=== PATIENT | female | born 1960 | race Caucasian/White ===

== ENCOUNTER 2018-01-01 04:28 | Inpatient (IN) | payer MEDICARE, BC ==
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
[2018-01-01 05:48] LABS: ABS Basophils 0 10^3/ul (0-0.2); ABS Eosinophils 0 10^3/ul (0-0.6); ABS Lymphocytes 1.5 10^3/ul (1.0-4.8); ABS Monocytes 0.7 10^3/ul (0-0.8); ABS Neutrophils 7.5 10^3/ul (1.5-7.7); ABS Nucleated RBC 0 10^3/ul; Eosinophil % 0.4 % (0-6); Hematocrit 41 % (35-47); Hemoglobin 14.2 g/dl (12.0-16.0); Lymphocyte % 15.1 % (25-47); Mean Corpuscular HGB Conc 35 g/dl (31-36); Mean Corpuscular Hemoglobin 32 pg (27-31); Mean Corpuscular Volume 93 fL (80-97); Nucleated Red Blood Cells % 0.1; Platelet Count 311 10^3/ul (150-450); Red Blood Count 4.41 10^6/ul (4.00-5.40); Red Cell Distribution Width 13 % (10.5-15); White Blood Count 9.8 10^3/ul (3.5-10.8)
[2018-01-01] MEDS ORDERED: Potassium Chlor TAB* 20 MEQ TAB.ER PO ONE (06:07)
[2018-01-01 06:08] LABS: Urine Appearance Cloudy; Urine Blood Negative (Negative); Urine Color Amber; Urine Ketones 2+ (Negative); Urine Protein 2+(100 mg/dL) (Negative); Urine Red Blood Cell 3+(>10/hpf) (Absent); Urine Specific Gravity 1.033 (1.010-1.030); Urine Urobilinogen Positive (Negative); Urine White Blood Cell 3+(>20/hpf) (Absent)
--- NOTE | 2018-01-01 09:04 | ED ---
Progress - Progress Note Progress Note: This pt was signed out by Dr. Scott at shift change, pending disposition, awaiting MHE. Pt had a mental health evaluation and his case was reviewed by Dr. Hoover, psychiatrist. Dr. Hoover will admit the pt involuntarily to [facility] psychiatric facility with a diagnosis of unspecified psychotic disorder NOS. Re-Evaluation - Re-Evaluation First Eval Re-Evaluation Time: 06:15 Change: Unchanged Comment: Medically cleared for MHE. Course/Dx - Diagnoses Provider Diagnoses: Psychotic disorder Discharge - Sign-Out/Discharge Documenting (check all that apply): Patient Departure - Admit to [facility] PSYCH, Receiving Sign-Out Receiving patient FROM: Luis Scott - Discharge Plan Condition: Stable Disposition: PSYCHIATRIC FACILITY-[facility] Referrals: No Primary Care Phys,NOPCP [Primary Care Provider] - - Attestation Statements Document Initiated by Scribe: Yes Documenting Scribe: Phoebe Mcnair Provider For Whom Scribe is Documenting (Include Credential): Anderson García MD Scribe Attestation: Phoebe Allen, scribed for Anderson García MD on 01/01/18 at 0913.
[2018-01-01] MEDS ORDERED: Al Hydrox/Mg Hydrox/Simet LIQ* 30 ML UDC PO PRN (09:05)
[2018-01-01] MEDS ORDERED: Acetaminophen TAB* 325 MG PO PRN (09:05)
[2018-01-01] MEDS ORDERED: Haloperidol TAB* 5 MG PO PRN (09:06)
[2018-01-01] MEDS ORDERED: Artificial Tears* 15 ML BTL BOTH EYES PRN (12:22)
[2018-01-01] MEDS ORDERED: LORazepam TAB(*) 1 MG PO PRN (12:36)
[2018-01-01] MEDS ORDERED: LORazepam TAB(*) 1 MG ONE (12:39)
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
[2018-01-01] MEDS: fluPHENAZine HCL TAB* 5 MG PO SCH (21:48)
[2018-01-01] MEDS: Ziprasidone * 20 MG CAP (generic Geodon) PO SCH ×2 (21:48)
[2018-01-01] MEDS: Benztropine TAB* 1 MG PO SCH (21:48)
[2018-01-02] MEDS: Ziprasidone * 20 MG CAP (generic Geodon) PO SCH ×3 (09:46→20:18)
[2018-01-02] MEDS: Benztropine TAB* 1 MG PO SCH ×2 (09:46→20:18)
[2018-01-02] MEDS: fluPHENAZine HCL TAB* 5 MG PO SCH (09:46)
--- NOTE | 2018-01-02 14:22 | PN ---
Subjective - Subjective Date of Service: 01/02/18 Service Type: 04231 Hosp care 15 min low complexity Subjective: Carolina met, initially, with Kojo Babb and me, but requested a 1/2 hour to wake up. When I returned, she was still in bed, but not as sleepy. She believes the Geodon she took last night is what is making her so tired. She reports that she took Geodon in the past, but she states she doesn't take any medication at home, although she used to. She will not say if she has ever taken any psychiatric medication in the past. She also will not reveal the location of her previous single stay in a psychiatric unit; further, she will not reveal if she has a PCP, although she says she has several "preferred doctors." She tells the story of her first hospitalization: she went to the hospital to have a 2-hour talk which she stated she was entitled to as part of her hospital' s public offerings. She states she was evaluated for "four minutes" and then committed involuntarily to the hospital for two weeks. At that time she took Geodon. She states she takes no other medications. She also is physically healthy, denying asthma, hypertension, and hypercholestrolemia specifically. She states she will refuse psychiatric medications as she doesn't need them and they have dangerous side effects. Objective - Appearance Appearance: Well Developed/Nourished Dysmorphic Features: No Hygiene: Mal-odorous Grooming: Disheveled - Behavior Exhibits Abnormal Movement: No - Attitude and Relatedness Attitude and Relatedness: Superficially Cooperative Eye Contact: Poor - Speech Quality: Unpressured Latencies: Short Quantity: Terse - Mood Patient's Decription of Mood: "Fine" - Affect Observed Affect: Constricted Affect Consistent with: Euthymia - Thought Process Patient's Thought Process: Circumstantial Thought Content: No Passive Wish, No Suicidal Planning, No Homicidal Ideation, No Paranoid Ideation - Sensorium Experiencing Hallucinations: No, Sensorium is Clear Type of Hallucinations: Visual: No, Auditory: No, Command: No - Level of Consciousness Level of Consciousness: Lethargic Orientation: Yes Intact, Yes Orientated to Time, Yes Orientated to Place, Yes Orientated to Person - Impulse Control Impulse Control: Impaired - Insight and Judgement Insight and Judgement: Impaired - Group Participation Particating in Group Activities: No - Medication Management Medication Management Adherence: Partial - Additional Observations Comments: Carolina has a clean face today, but her hair is sticking up around her head. She is logical in speech, but is very clearly measuring her words and filtering what she is saying. There is a sense that she is editing significantly, especially around the subjects of physical and mental health. Assessment - Assessment Merits Inpatient Hospitalization: For Immediate Safety, For Discharge Planning Clinical Impression: Carolina at this time is sleepy, but conversational and pleasant. She does not endorse any psychiatric problems and seems mystified by why she is here. Her previous psychiatric admission's purpose is also mysterious to her. There is a distinct lack of insight on the part of Carolina in this regard, but she seems to be aware that collateral from her family or previous hospital or doctors will prove "damaging" to her assertion of healthy mental status. Plan - Plan Treatment Plan: Name: CAROLINA CHRISTIANSON Birthdate: 1960 [id number] Continued Medication Management: Different Medication Medications: Current Medications Acetaminophen (Tylenol Tab*) 650 mg PO Q4H PRN PRN Reason: for pain; or Temp >101 F Al Hydrox/Mg Hydrox/Simethicone (Maalox Plus*) 30 ml PO Q4H PRN PRN Reason: INDIGESTION Benztropine Mesylate (Cogentin Tab*) 0.5 mg PO BID [facility] Last Admin: 01/02/18 09:46 Dose: Not Given Haloperidol (Haldol Tab*) 5 mg PO Q6H PRN PRN Reason: ANXIETY Lorazepam (Ativan Tab(*)) 2 mg PO Q6H PRN PRN Reason: catatonic behavior Polyvinyl Alcohol (Polyvinyl Alcohol 1.4% Opth*) 1 drop BOTH EYES Q1H PRN PRN Reason: dry eye/eye irritation Ziprasidone (Geodon (Generic) *) 40 mg PO BID [facility] Last Admin: 01/02/18 09:46 Dose: Not Given Ziprasidone (Geodon (Generic) *) 60 mg PO BEDTIME [facility] Last Admin: 01/01/18 21:48 Dose: 60 mg - Discharge Plan Discharge Plan: Outpatient Follow Up Additional Comments: Yesterday she was clearly psychotic, nearly catatonic. Today she appears clear. This could be because of all the sleep she has gotten and her regular eating of meals. Tomorrow we will reassess and have a better determination of length of stay.
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
[2018-01-03] MEDS: Ziprasidone * 20 MG CAP (generic Geodon) PO SCH (09:39)
[2018-01-03] MEDS: Benztropine TAB* 1 MG PO SCH ×2 (09:39→20:58)
--- NOTE | 2018-01-03 14:19 | PN ---
Subjective - Subjective Date of Service: 01/03/18 Service Type: 56299 Hosp care 15 min low complexity Subjective: Carolina declines to speak with me today. In observing her, she is red-faced and is walking around the milieu intensely. Her hair remains extremely disheveled and is standing up around her head. She is in blue paper scrubs. She asked for her shower to be cleaned because someone else had used it: she doesn't remember that she is the one who used it. There is collateral from her brother available that indicates that Carolina is good at "holding it together" but eventually unravels. Objective - Appearance Appearance: Well Developed/Nourished Dysmorphic Features: No Hygiene: Normal Grooming: Disheveled - Behavior Psychomotor Activities: Normal Exhibits Abnormal Movement: No - Attitude and Relatedness Attitude and Relatedness: Minimally Cooperative Eye Contact: Poor - Speech Quality: Unpressured Latencies: Short Quantity: Terse - Mood Patient's Decription of Mood: "Fine" - Affect Observed Affect: Constricted Affect Consistent with: Dysphoria - Thought Process Patient's Thought Process: Coherent Thought Content: Yes Homicidal Ideation, No Passive Wish, No Suicidal Planning - Sensorium Experiencing Hallucinations: No, Sensorium is Clear Type of Hallucinations: Visual: No, Command: No - Level of Consciousness Level of Consciousness: Alert Orientation: Yes Intact, Yes Orientated to Time, Yes Orientated to Place, Yes Orientated to Person - Impulse Control Impulse Control: Tenuous - Insight and Judgement Insight and Judgement: Poor - Group Participation Particating in Group Activities: No - Medication Management Medication Management Adherence: No - Additional Observations Comments: She is logical in speech, but is very clearly measuring her words and filtering what she is saying. There is a sense that she is editing significantly. She does not look collected and calm. She appears agitated physically while maintaining silence for the most part. Assessment - Assessment Merits Inpatient Hospitalization: For Immediate Safety, For Discharge Planning, Pending Safe DC Plan Clinical Impression: Carolina does not endorse any psychiatric problems and seems mystified by why she is here. Her previous psychiatric admission's purpose is also mysterious to her (she admits to only one although her brother indicates there have been 4-5 this year alone). There is a distinct lack of insight on the part of Carolina in this regard, but she seems to be aware that collateral from her family or previous hospital or doctors will prove "damaging" to her assertion of healthy mental status. Her stress level here is relatively low as there is little expected of her and she is eating and drinking adequately. Continued monitoring may prove useful in that her behavior may start to deteriorate. Plan - Plan Treatment Plan: Name: CAROLINA CHRISTIANSON Birthdate: 1960 [id number] Continued Medication Management: Start Medication Medications: Current Medications Acetaminophen (Tylenol Tab*) 650 mg PO Q4H PRN PRN Reason: for pain; or Temp >101 F Al Hydrox/Mg Hydrox/Simethicone (Maalox Plus*) 30 ml PO Q4H PRN PRN Reason: INDIGESTION Benztropine Mesylate (Cogentin Tab*) 0.5 mg PO BID [facility] Last Admin: 01/03/18 09:39 Dose: Not Given Haloperidol (Haldol Tab*) 5 mg PO Q6H PRN PRN Reason: ANXIETY Lorazepam (Ativan Tab(*)) 2 mg PO Q6H PRN PRN Reason: catatonic behavior Polyvinyl Alcohol (Polyvinyl Alcohol 1.4% Opth*) 1 drop BOTH EYES Q1H PRN PRN Reason: dry eye/eye irritation Ziprasidone (Geodon (Generic) *) 40 mg PO BID [facility] Last Admin: 01/03/18 09:39 Dose: Not Given Ziprasidone (Geodon (Generic) *) 60 mg PO BEDTIME [facility] Last Admin: 01/02/18 20:18 Dose: Not Given - Discharge Plan Discharge Plan: Inpatient Hospitalization Additional Comments: Yesterday she was clearly psychotic, nearly catatonic. Today she appears clear. This could be because of all the sleep she has gotten and her regular eating of meals. Continued monitoring will be important. I will also change the medication to Risperdal m tabs to prepare her for an injectable if necessary or possible. She has been rejecting all medications since the first night.
[2018-01-03] MEDS ORDERED: risperiDONE-M * 1 MG TAB.ORADIS PO PRN (14:30)
[2018-01-03] MEDS: risperiDONE-M * 1 MG TAB.ORADIS PO SCH (20:58)
[2018-01-04] MEDS: Benztropine TAB* 1 MG PO SCH ×2 (09:26→22:01)
[2018-01-04] MEDS: risperiDONE-M * 1 MG TAB.ORADIS PO SCH ×2 (09:26→22:01)
[2018-01-05] MEDS: risperiDONE-M * 1 MG TAB.ORADIS PO SCH ×2 (10:40→20:08)
[2018-01-05] MEDS: Benztropine TAB* 1 MG PO SCH ×2 (10:40→20:08)
--- NOTE | 2018-01-05 19:33 | PN ---
Subjective - Subjective Date of Service: 01/05/18 Service Type: [id number] Hosp care 15 min low complexity Subjective: Carolina came reluctanly to see this senior technical writer and reports that she doesn't have any menta illness. She just was stressed brigid by the roadside in a strange place. Very suspicious and guarded and denies that she has any mental health issues and need any meds. Objective - Appearance Appearance: Healthy Appearing Dysmorphic Features: No Hygiene: Mal-odorous Grooming: Disheveled - Behavior Psychomotor Activities: Normal Exhibits Abnormal Movement: No - Attitude and Relatedness Attitude and Relatedness: Superficially Cooperative Eye Contact: Fair - Speech Quality: Unpressured Latencies: Normal Quantity: Terse - Mood Patient's Decription of Mood: "Fine" - Affect Observed Affect: Depressed Affect Consistent with: Dysphoria - Thought Process Patient's Thought Process: Coherent, Circumstantial Thought Content: No Passive Wish, No Suicidal Planning, No Homicidal Ideation, No Paranoid Ideation - Sensorium Experiencing Hallucinations: No, Sensorium is Clear Type of Hallucinations: Visual: No, Auditory: No, Command: No - Level of Consciousness Level of Consciousness: Alert Orientation: Yes Intact, Yes Orientated to Time, Yes Orientated to Place, Yes Orientated to Person - Impulse Control Impulse Control: Tenuous - Insight and Judgement Insight and Judgement: Impaired - Group Participation Particating in Group Activities: No - Medication Management Medication Management Adherence: No Assessment - Assessment Merits Inpatient Hospitalization: For Immediate Safety, For Stabilization, Diagnosis Determination, To Initiate Treatment, For Ongoing Evaluation Clinical Impression: Carolina does not endorse any psychiatric problems and seems mystified by why she is here. Her previous psychiatric admission's purpose is also mysterious to her (she admits to only one although her brother indicates there have been 4-5 this year alone). There is a distinct lack of insight on the part of Carolina in this regard, but she seems to be aware that collateral from her family or previous hospital or doctors will prove "damaging" to her assertion of healthy mental status. Her stress level here is relatively low as there is little expected of her and she is eating and drinking adequately. Continued monitoring may prove useful in that her behavior may start to deteriorate. 01/05/18: No change from baseline. Needs time for diagnostic clarification and safety. Plan - Plan Treatment Plan: Name: CAROLINA CHRISTIANSON Birthdate: 1960 [id number] Medications: Current Medications Acetaminophen (Tylenol Tab*) 650 mg PO Q4H PRN PRN Reason: for pain; or Temp >101 F Al Hydrox/Mg Hydrox/Simethicone (Maalox Plus*) 30 ml PO Q4H PRN PRN Reason: INDIGESTION Benztropine Mesylate (Cogentin Tab*) 0.5 mg PO BID [facility] Last Admin: 01/05/18 10:40 Dose: Not Given Lorazepam (Ativan Tab(*)) 2 mg PO Q6H PRN PRN Reason: catatonic behavior Polyvinyl Alcohol (Polyvinyl Alcohol 1.4% Opth*) 1 drop BOTH EYES Q1H PRN PRN Reason: dry eye/eye irritation Risperidone (Risperdal-M Tab *) 1 mg PO BID [facility]; Protocol Last Admin: 01/05/18 10:40 Dose: Not Given Risperidone (Risperdal-M Tab *) 2 mg PO Q6H PRN; Protocol PRN Reason: AGITATION
[2018-01-06] MEDS: Benztropine TAB* 1 MG PO SCH ×2 (09:59→20:11)
[2018-01-06] MEDS: risperiDONE-M * 1 MG TAB.ORADIS PO SCH ×2 (09:59→20:11)
--- NOTE | 2018-01-06 13:41 | PN ---
Subjective - Subjective Date of Service: 01/06/18 Service Type: [id number] Hosp care 15 min low complexity Subjective: Carolina smiles throughout the conversation despite it not going her way. She believed she would be discharged today and that she would drive herself home. She will instead be discharged to a sibling's care and driven back to [place]. Carolina does not accept that she is mentally ill. She believes that her catatonic behavior is an expression of the trauma she experienced by being stuck by the side of the road. She does not accept the feedback that her behavior is not a known trauma response. She also requires that she consult with Kojo Babb LMSW, to confirm that what has been said is true, demonstrating some continuing paranoia in this direction. Objective - Appearance Appearance: Well Developed/Nourished Dysmorphic Features: No Hygiene: Dirty Grooming: Disheveled - Behavior Psychomotor Activities: Normal Exhibits Abnormal Movement: Yes - Attitude and Relatedness Attitude and Relatedness: Minimally Cooperative Eye Contact: Fair - Speech Quality: Unpressured Latencies: Normal Quantity: Terse - Mood Patient's Decription of Mood: "Fine" - Affect Observed Affect: Constricted Affect Consistent with: Euthymia - Thought Process Patient's Thought Process: Goal Directed Thought Content: Yes Paranoid Ideation, No Passive Wish, No Suicidal Planning, No Homicidal Ideation - Sensorium Experiencing Hallucinations: No, Sensorium is Clear Type of Hallucinations: Visual: No, Auditory: No, Command: No - Level of Consciousness Level of Consciousness: Alert Orientation: Yes Intact, Yes Orientated to Time, Yes Orientated to Place, Yes Orientated to Person - Impulse Control Impulse Control: Impaired - Insight and Judgement Insight and Judgement: Impaired - Group Participation Particating in Group Activities: No - Medication Management Medication Management Adherence: No - Additional Observations Comments: She is logical in speech, but is very clearly measuring her words and filtering what she is saying. There is a sense that she is editing significantly. She does not look collected and calm. She will not take any medications of any kind. Her hair is dirty and is styled bizarrely. She stays lying down in bed and stares brightly at the wall when she talks. Assessment - Assessment Merits Inpatient Hospitalization: For Immediate Safety, Pending Safe DC Plan Clinical Impression: Carolina does not endorse any psychiatric problems and seems mystified by why she is here. Her previous psychiatric admission's purpose is also mysterious to her (she admits to only one although her brother indicates there have been 4-5 this year alone). There is a distinct lack of insight on the part of Carolina in this regard, but she seems to be aware that collateral from her family or previous hospital or doctors will prove "damaging" to her assertion of healthy mental status. Her stress level here is relatively low as there is little expected of her and she is eating and drinking adequately. 01/05/18: No change from baseline. Needs time for diagnostic clarification and safety. 01/06/2018: Carolina has not changed. She believed she was leaving today, but was still wrapped in blankets on top of her covers when I went to see her. She is behaving oddly and does not trust some staff. Plan - Plan Treatment Plan: Name: CAROLINA CHRISTIANSON Birthdate: 1960 [id number] Medications: Current Medications Acetaminophen (Tylenol Tab*) 650 mg PO Q4H PRN PRN Reason: for pain; or Temp >101 F Al Hydrox/Mg Hydrox/Simethicone (Maalox Plus*) 30 ml PO Q4H PRN PRN Reason: INDIGESTION Benztropine Mesylate (Cogentin Tab*) 0.5 mg PO BID [facility] Last Admin: 01/06/18 09:59 Dose: Not Given Lorazepam (Ativan Tab(*)) 2 mg PO Q6H PRN PRN Reason: catatonic behavior Polyvinyl Alcohol (Polyvinyl Alcohol 1.4% Opth*) 1 drop BOTH EYES Q1H PRN PRN Reason: dry eye/eye irritation Risperidone (Risperdal-M Tab *) 1 mg PO BID [facility]; Protocol Last Admin: 01/06/18 09:59 Dose: Not Given Risperidone (Risperdal-M Tab *) 2 mg PO Q6H PRN; Protocol PRN Reason: AGITATION - Discharge Plan Discharge Plan: Outpatient Follow Up Additional Comments: Today she appears clear, although with a strange affect and mild paranoid thoughts. Continued monitoring will be important while she is here. I will also change the medication to Risperdal m tabs to prepare her for an injectable if necessary or possible. She has been rejecting all medications since the first night and has continued to do so, no matter what medication is offered. Her brother, with whom Kojo has been in contact, states he can organize a ride home for her by . That is the avenue we pursue to maintain her safety and ensure she returns home.
[2018-01-07] MEDS: Benztropine TAB* 1 MG PO SCH ×2 (10:51→19:54)
[2018-01-07] MEDS: risperiDONE-M * 1 MG TAB.ORADIS PO SCH ×2 (10:51→19:54)
--- NOTE | 2018-01-07 13:55 | PN ---
Subjective - Subjective Date of Service: 01/07/18 Service Type: [id number] Hosp care 15 min low complexity Subjective: Carolina is lying in bed. She says it's depressing to be here and not be leaving until . She is not interested in taking medication, but she is polite about it. She does not smell good, and this has been discussed with her, which she found offensive. Objective - Appearance Appearance: Well Developed/Nourished Dysmorphic Features: No Hygiene: Dirty Grooming: Disheveled - Behavior Psychomotor Activities: Normal Exhibits Abnormal Movement: No - Attitude and Relatedness Attitude and Relatedness: Superficially Cooperative Eye Contact: Fair - Speech Quality: Unpressured Latencies: Normal Quantity: Terse - Mood Patient's Decription of Mood: "Okay" - Affect Observed Affect: Constricted Affect Consistent with: Dysphoria - Thought Process Patient's Thought Process: Coherent Thought Content: Yes Paranoid Ideation, No Passive Wish, No Suicidal Planning, No Homicidal Ideation - Sensorium Experiencing Hallucinations: Yes Type of Hallucinations: Visual: No, Auditory: Yes - was observed talking to herself last night, Command: No - Level of Consciousness Level of Consciousness: Alert Orientation: Yes Intact, Yes Orientated to Time, Yes Orientated to Place, Yes Orientated to Person - Impulse Control Impulse Control: Tenuous - Insight and Judgement Insight and Judgement: Poor - Group Participation Particating in Group Activities: No - Medication Management Medication Management Adherence: No - Additional Observations Comments: She is logical in speech, but is very clearly measuring her words and filtering what she is saying. There is a sense that she is editing significantly. She will not take any medications of any kind. Her hair is dirty and is slicked back. She stays lying down in bed and looks at the wall when she talks. She is polite and pleasant, but she is not interested in having a conversation. Assessment - Assessment Merits Inpatient Hospitalization: For Immediate Safety Inpatient DSM-V Dx: F29 Clinical Impression: Carolina does not endorse any psychiatric problems and seems mystified by why she is here. Her previous psychiatric admission's purpose is also mysterious to her (she admits to only one although her brother indicates there have been 4-5 this year alone). There is a distinct lack of insight on the part of Carolina in this regard, but she seems to be aware that collateral from her family or previous hospital or doctors will prove "damaging" to her assertion of healthy mental status. Her stress level here is relatively low as there is little expected of her and she is eating and drinking adequately. 01/05/18: No change from baseline. Needs time for diagnostic clarification and safety. 01/06/2018: Carolina has not changed. She believed she was leaving today, but was still wrapped in blankets on top of her covers when I went to see her. She is behaving oddly and does not trust some staff. 01/07/18: She is very pleasant and agreeable to disagree about taking medications. She is unkempt and has oily hair. She was observed to be responding to internal stimuli last night. Plan - Plan Treatment Plan: Name: CAROLINA CHRISTIANSON Birthdate: 1960 [id number] Medications: Current Medications Acetaminophen (Tylenol Tab*) 650 mg PO Q4H PRN PRN Reason: for pain; or Temp >101 F Al Hydrox/Mg Hydrox/Simethicone (Maalox Plus*) 30 ml PO Q4H PRN PRN Reason: INDIGESTION Benztropine Mesylate (Cogentin Tab*) 0.5 mg PO BID [facility] Last Admin: 01/07/18 10:51 Dose: Not Given Polyvinyl Alcohol (Polyvinyl Alcohol 1.4% Opth*) 1 drop BOTH EYES Q1H PRN PRN Reason: dry eye/eye irritation Risperidone (Risperdal-M Tab *) 1 mg PO BID [facility]; Protocol Last Admin: 01/07/18 10:51 Dose: Not Given Risperidone (Risperdal-M Tab *) 2 mg PO Q6H PRN; Protocol PRN Reason: AGITATION - Discharge Plan Discharge Plan: Outpatient Follow Up Additional Comments: Today she appears clear, although with a strange affect and mild paranoid thoughts. Continued monitoring will be important while she is here. I will also change the medication to Risperdal m tabs to prepare her for an injectable if necessary or possible. She has been rejecting all medications since the first night and has continued to do so, no matter what medication is offered. Her brother, with whom Kojo has been in contact, states he can organize a ride home for her by . That is the avenue we pursue to maintain her safety and ensure she returns home. Kojo has been discussing her discharge plan with Carolina and her brother. Carolina is quite irritated with her brother due to his releasing information to Kojo.
[2018-01-08] MEDS: risperiDONE-M * 1 MG TAB.ORADIS PO SCH ×2 (09:51→21:35)
[2018-01-08] MEDS: Benztropine TAB* 1 MG PO SCH ×2 (09:51→21:35)
--- NOTE | 2018-01-08 16:08 | PN ---
Subjective - Subjective Date of Service: 01/08/18 Service Type: [id number] Hosp care 25 min moderate complexity Subjective: Kojo Babb and I met with Edison to discuss the decision to pursue treatment over objection. This was a very unpopular announcement with Edison. She restrained herself, but she was hostile and outraged. She called herself, "furious." She was unimpressed with collateral from her brother and was uninterested in sympathy. She did speak privately with Kojo for some time. Objective - Appearance Appearance: Obese Dysmorphic Features: No Hygiene: Mal-odorous Grooming: Disheveled - Behavior Psychomotor Activities: Normal Exhibits Abnormal Movement: No - Attitude and Relatedness Attitude and Relatedness: Irritable Eye Contact: Fair - Speech Quality: Pressured Latencies: Normal Quantity: Copious - Mood Patient's Decription of Mood: "Angry" - Affect Observed Affect: Tense Affect Consistent with: Dysphoria - Thought Process Patient's Thought Process: Coherent Thought Content: No Passive Wish, No Suicidal Planning, No Homicidal Ideation, No Paranoid Ideation - Sensorium Experiencing Hallucinations: No, Sensorium is Clear Type of Hallucinations: Visual: No, Auditory: Yes - Was reported two days ago to be responding to IS., Command: No - Level of Consciousness Level of Consciousness: Agitated Orientation: Yes Intact, Yes Orientated to Time, Yes Orientated to Place, Yes Orientated to Person - Impulse Control Impulse Control: Tenuous - Insight and Judgement Insight and Judgement: Impaired - Group Participation Particating in Group Activities: No - Medication Management Medication Management Adherence: No - Additional Observations Comments: She is logical in speech, but is very clearly measuring her words and filtering what she is saying. There is a sense that she is editing significantly. She will not take any medications of any kind. Her hair is dirty and is slicked back. Today she sat up and made eye contact, but was so angry that she could not tolerate my presence for long. Assessment - Assessment Merits Inpatient Hospitalization: For Immediate Safety, For Ongoing Evaluation Inpatient DSM-V Dx: F29 Clinical Impression: Edison does not endorse any psychiatric problems and seems mystified by why she is here. Her previous psychiatric admission's purpose is also mysterious to her (she admits to only one although her brother indicates there have been 4-5 this year alone). There is a distinct lack of insight on the part of Edison in this regard, but she seems to be aware that collateral from her family or previous hospital or doctors will prove "damaging" to her assertion of healthy mental status. Her stress level here is relatively low as there is little expected of her and she is eating and drinking adequately. 01/05/18: No change from baseline. Needs time for diagnostic clarification and safety. 01/06/2018: Edison has not changed. She believed she was leaving today, but was still wrapped in blankets on top of her covers when I went to see her. She is behaving oddly and does not trust some staff. 01/07/18: She is very pleasant and agreeable to disagree about taking medications. She is unkempt and has oily hair. She was observed to be responding to internal stimuli last night. 01/08/18: Edison was angry and upset about learning about the decision to pursue treatment over objection. Interestingly, she did not bargain about how to avoid having to have this decision be made, rather she targeted her anger to people in her life indicating a lack of insight into what her role in this situation is. Plan - Plan Treatment Plan: Name: EDISON CHRISTIANSON Birthdate: 1960 [id number] Continued Medication Management: Start Medication Medications: Current Medications Acetaminophen (Tylenol Tab*) 650 mg PO Q4H PRN PRN Reason: for pain; or Temp >101 F Al Hydrox/Mg Hydrox/Simethicone (Maalox Plus*) 30 ml PO Q4H PRN PRN Reason: INDIGESTION Benztropine Mesylate (Cogentin Tab*) 0.5 mg PO BID [facility] Last Admin: 01/08/18 09:51 Dose: Not Given Polyvinyl Alcohol (Polyvinyl Alcohol 1.4% Opth*) 1 drop BOTH EYES Q1H PRN PRN Reason: dry eye/eye irritation Risperidone (Risperdal-M Tab *) 1 mg PO BID [facility]; Protocol Last Admin: 01/08/18 09:51 Dose: Not Given Risperidone (Risperdal-M Tab *) 2 mg PO Q6H PRN; Protocol PRN Reason: AGITATION - Discharge Plan Additional Comments: Today she appears clear, although with a strange affect and mild paranoid thoughts. Continued monitoring will be important while she is here. I will also change the medication to Risperdal m tabs to prepare her for an injectable if necessary or possible. She has been rejecting all medications since the first night and has continued to do so, no matter what medication is offered. Kojo has been discussing her discharge plan with Edison and her brother. Edison is quite irritated with her brother due to his releasing information to Kojo. Treatment over objection paperwork has been initiated and this path will be pursued.
[2018-01-09] MEDS: risperiDONE-M * 1 MG TAB.ORADIS PO SCH (10:31)
[2018-01-09] MEDS: Benztropine TAB* 1 MG PO SCH ×2 (10:31→20:53)
--- NOTE | 2018-01-09 12:01 | PN ---
Subjective - Subjective Date of Service: 01/09/18 Service Type: [id number] Hosp care 25 min moderate complexity Subjective: Carolina is seen for the first time by this clinician, who will be taking over as her attending, given the fact that the hospital is pursuing treatment over her objection. She remains unkempt but is alert and interactive. She remains against the idea of antipsychotic medications, stating that she has gotten side effects from a number of them, including geodon and risperidone, which she can name. She goes on to report that she has researched the shelter effects of these medications and that they can result in permanent movement disorders when chronically administered. Carolina demonstrates very clear lack of insight into the circumstances of her admission and the catatonic behaviors she has clearly demonstrated since her arrival on the unit. She insists that she ran out of gas on her way driving from [facility] to her home in [place] (seeming ignorant that this would not make geographic sense) and that her "abnormal behaviors" are a result of her simply ignoring staff members. Her account is inconsistent with that of her siblings, the police who apprehended her and members of the team, this clinician included, who have observed her during her stay. She also displays paranoia, insisting that we shut the door and that staff members have given out her personal information to others. I tried to confront her about her numerous catatonic spells and she dismisses these concerns, stating "I'm just doing mental exercises." She denies being a risk to herself or others and disagrees with the proposed T.O.O. proceedings. Objective - Appearance Appearance: Obese Dysmorphic Features: No Hygiene: Mal-odorous Grooming: Disheveled - Behavior Psychomotor Activities: Normal Exhibits Abnormal Movement: No - Attitude and Relatedness Attitude and Relatedness: Dismissive Eye Contact: Fair - Speech Quality: Unpressured Latencies: Normal Quantity: Appropriate - Mood Patient's Decription of Mood: "Fine" - Affect Observed Affect: Tense Affect Consistent with: Euthymia - Thought Process Patient's Thought Process: Coherent Thought Content: Yes Paranoid Ideation, No Passive Wish, No Suicidal Planning, No Homicidal Ideation - Sensorium Experiencing Hallucinations: No, Sensorium is Clear Type of Hallucinations: Visual: No, Auditory: No, Command: No - Level of Consciousness Level of Consciousness: Alert Orientation: Yes Intact, Yes Orientated to Time, Yes Orientated to Place, Yes Orientated to Person - Impulse Control Impulse Control: Poor - Insight and Judgement Insight and Judgement: Impaired - Group Participation Particating in Group Activities: No - Medication Management Medication Management Adherence: No Assessment - Assessment Merits Inpatient Hospitalization: For Immediate Safety, For Stabilization Inpatient DSM-V Dx: F29 Clinical Impression: 57 y.o. single, white female with a history of multiple recent psychiatric admissions for psychosis in her [place], who was apprehended by police after being discovered by concerned citizens, sitting in a rental car on the side of the road, staring blankly into space. She cannot account for why she drove to this area and has frequently been observed to be catatonic on our unit since admission. Plan - Plan Treatment Plan: Name: CAROLINA CHRISTIANSON Birthdate: 1960 [id number] The patient has had trials of second generation neuroleptics previously and complains bitterly of EPS and fears of tardive dyskinesia. She would be an excellent candidate for aripiprazole, particularly in the PANDYA formulation, however, she is refusing this. We will pursue treatment over her objection, due to the obvious safety risks associated with her nonadherence. Start aripiprazole 5mg PO qday. Needs further inpatient stabilization. Continued Medication Management: Start Medication Medications: Current Medications Acetaminophen (Tylenol Tab*) 650 mg PO Q4H PRN PRN Reason: for pain; or Temp >101 F Al Hydrox/Mg Hydrox/Simethicone (Maalox Plus*) 30 ml PO Q4H PRN PRN Reason: INDIGESTION Benztropine Mesylate (Cogentin Tab*) 0.5 mg PO BID [facility] Last Admin: 01/09/18 10:31 Dose: Not Given Polyvinyl Alcohol (Polyvinyl Alcohol 1.4% Opth*) 1 drop BOTH EYES Q1H PRN PRN Reason: dry eye/eye irritation Risperidone (Risperdal-M Tab *) 1 mg PO BID [facility]; Protocol Last Admin: 01/09/18 10:31 Dose: Not Given Risperidone (Risperdal-M Tab *) 2 mg PO Q6H PRN; Protocol PRN Reason: AGITATION - Discharge Plan Discharge Plan: Inpatient Hospitalization
[2018-01-09] MEDS: ARIPiprazole TAB* 5 MG PO SCH (13:25)
[2018-01-10] MEDS: ARIPiprazole TAB* 5 MG PO SCH (10:07)
[2018-01-10] MEDS: Benztropine TAB* 1 MG PO SCH ×2 (10:08→22:41)
--- NOTE | 2018-01-10 13:31 | PN ---
Subjective - Subjective Date of Service: 01/10/18 Service Type: [id number] Hosp care 15 min low complexity Subjective: Carolina remains dishevelled and uncooperative with certain staff. Prior to my entry I note that she refuses to interact with the [facility] estate planning attorney assigned to her case. She continues to refuse meds based on fears of EPS and tardive dyskinesia. I do take some time to explain the rationale for switching to aripiprazole, which, unlike other second generation antipsychotics, is a partial agonist at the D2 receptor. Theoretically, this explains the reduced risk of EPS from this particular agent. Initially, she is unmoved, again stating that she will refuse the medicine. Soon afterwards, however, she finds me in the hallway, saying she will take the medicine. Interestingly, she will not accept it from a nurse, appearing paranoid to do so, but only directly from this clinician. Objective - Appearance Appearance: Well Developed/Nourished Dysmorphic Features: No Hygiene: Dirty Grooming: Disheveled - Behavior Psychomotor Activities: Abnormal-Decreased Exhibits Abnormal Movement: Yes - Attitude and Relatedness Attitude and Relatedness: Psychotically Related Eye Contact: Fair - Speech Quality: Unpressured Latencies: Normal Quantity: Appropriate - Mood Patient's Decription of Mood: "Anxious" - Affect Observed Affect: Tense Affect Consistent with: Dysphoria - Thought Process Patient's Thought Process: Coherent Thought Content: Yes Paranoid Ideation, No Passive Wish, No Suicidal Planning, No Homicidal Ideation - Sensorium Experiencing Hallucinations: No, Sensorium is Clear Type of Hallucinations: Visual: No, Auditory: No, Command: No - Level of Consciousness Level of Consciousness: Alert Orientation: Yes Intact, Yes Orientated to Time, Yes Orientated to Place, Yes Orientated to Person - Impulse Control Impulse Control: Poor - Insight and Judgement Insight and Judgement: Impaired - Group Participation Particating in Group Activities: No - Medication Management Medication Management Adherence: No Assessment - Assessment Merits Inpatient Hospitalization: For Immediate Safety, For Stabilization Inpatient DSM-V Dx: F29 Clinical Impression: 57 y.o. single, white female with a history of multiple recent psychiatric admissions for psychosis in her [place], who was apprehended by police after being discovered by concerned citizens, sitting in a rental car on the side of the road, staring blankly into space. She cannot account for why she drove to this area and has frequently been observed to be catatonic on our unit since admission. Plan - Plan Treatment Plan: Name: CAROLINA CHRISTIANSON Birthdate: 1960 [id number] The patient has had trials of second generation neuroleptics previously and complains bitterly of EPS and fears of tardive dyskinesia. For this reason, we have opted for a trial of aripiprazole, which she reluctantly took the first dose of this morning. We are pursuing treatment over her objection, due to the obvious safety risks associated with her catatonia, however, we can avoid this if she stays adherent. Needs further inpatient stabilization. Continued Medication Management: Start Medication Medications: Current Medications Acetaminophen (Tylenol Tab*) 650 mg PO Q4H PRN PRN Reason: for pain; or Temp >101 F Al Hydrox/Mg Hydrox/Simethicone (Maalox Plus*) 30 ml PO Q4H PRN PRN Reason: INDIGESTION Aripiprazole (Abilify Tab*) 5 mg PO DAILY [facility] Last Admin: 01/10/18 10:07 Dose: 5 mg Benztropine Mesylate (Cogentin Tab*) 0.5 mg PO BID [facility] Last Admin: 01/10/18 10:08 Dose: Not Given Polyvinyl Alcohol (Polyvinyl Alcohol 1.4% Opth*) 1 drop BOTH EYES Q1H PRN PRN Reason: dry eye/eye irritation - Discharge Plan Discharge Plan: Inpatient Hospitalization
[2018-01-11] MEDS: ARIPiprazole TAB* 5 MG PO SCH (09:39)
[2018-01-11] MEDS: Benztropine TAB* 1 MG PO SCH ×2 (09:39→21:18)
[2018-01-12] MEDS: ARIPiprazole TAB* 5 MG PO SCH (10:08)
[2018-01-12] MEDS: Benztropine TAB* 1 MG PO SCH ×2 (10:09→21:43)
[2018-01-13] MEDS: Benztropine TAB* 1 MG PO SCH ×2 (10:05→21:17)
[2018-01-13] MEDS: ARIPiprazole TAB* 5 MG PO SCH (10:14)
--- NOTE | 2018-01-13 14:26 | PN ---
Subjective - Subjective Date of Service: 01/13/18 Service Type: [id number] Hosp care 15 min low complexity Subjective: Although Carolina will not speak to me or make eye contact with me, she remains agreeable to the plan she created with Dr. Hoover. She is noticing no side effects from Abilify at this point. She spoke to Kojo for about 15 minutes and remained in behavioral control. Objective - Appearance Appearance: Well Developed/Nourished Dysmorphic Features: No Hygiene: Dirty Grooming: Disheveled - Behavior Psychomotor Activities: Normal Exhibits Abnormal Movement: No - Attitude and Relatedness Attitude and Relatedness: Dismissive Eye Contact: Poor - Speech Quality: Unpressured Latencies: Normal Quantity: Terse - Mood Patient's Decription of Mood: "Fine" - Affect Observed Affect: Fair Affect Consistent with: Euthymia - Thought Process Patient's Thought Process: Coherent Thought Content: No Passive Wish, No Suicidal Planning, No Homicidal Ideation, No Paranoid Ideation - Sensorium Experiencing Hallucinations: No, Sensorium is Clear Type of Hallucinations: Visual: No, Auditory: No, Command: No - Level of Consciousness Level of Consciousness: Agitated Orientation: Yes Intact, Yes Orientated to Time, Yes Orientated to Place, Yes Orientated to Person - Impulse Control Impulse Control: Tenuous - Insight and Judgement Insight and Judgement: Poor - Group Participation Particating in Group Activities: No - Medication Management Medication Management Adherence: Partial - Additional Observations Comments: She is logical in speech, but is very clearly measuring her words and filtering what she is saying. There is a sense that she is editing significantly. She will not take any medications of any kind. Her hair is dirty and is slicked back. She was seen in the milieu, having come there voluntarily. She is pleasant with some staff and not with others. Assessment - Assessment Merits Inpatient Hospitalization: For Immediate Safety, For Discharge Planning Inpatient DSM-V Dx: F29 Clinical Impression: 57 y.o. single, white female with a history of multiple recent psychiatric admissions for psychosis in her [place], who was apprehended by police after being discovered by concerned citizens, sitting in a rental car on the side of the road, staring blankly into space. She cannot account for why she drove to this area and has frequently been observed to be catatonic on our unit since admission. Plan - Plan Treatment Plan: Name: CAROLINA CHRISTIANSON Birthdate: 1960 [id number] Medications: Current Medications Acetaminophen (Tylenol Tab*) 650 mg PO Q4H PRN PRN Reason: for pain; or Temp >101 F Al Hydrox/Mg Hydrox/Simethicone (Maalox Plus*) 30 ml PO Q4H PRN PRN Reason: INDIGESTION Aripiprazole (Abilify Tab*) 5 mg PO DAILY [facility] Last Admin: 01/13/18 10:14 Dose: 5 mg Benztropine Mesylate (Cogentin Tab*) 0.5 mg PO BID [facility] Last Admin: 01/13/18 10:05 Dose: Not Given Polyvinyl Alcohol (Polyvinyl Alcohol 1.4% Opth*) 1 drop BOTH EYES Q1H PRN PRN Reason: dry eye/eye irritation - Discharge Plan Additional Comments: Today she appears clear. Continued monitoring will be important while she is here to determine if she becomes catatonic, psychotic, responds to internal stimuli, etc. Kojo has been discussing her discharge plan with Carolina and her brother. Treatment over objection paperwork was started, but it was abandoned when she agreed to take Abilify. We may offer her a long-acting injectable form of aripiprazole before she leaves. We are targeting or Saturday, when her family can come to get her.
[2018-01-14] MEDS: Benztropine TAB* 1 MG PO SCH ×2 (08:25→21:08)
[2018-01-14] MEDS: ARIPiprazole TAB* 5 MG PO SCH (09:49)
[2018-01-15] MEDS: ARIPiprazole TAB* 5 MG PO SCH (09:07)
[2018-01-15] MEDS: Benztropine TAB* 1 MG PO SCH (09:08)
--- NOTE | 2018-01-15 15:08 | PN ---
Subjective - Subjective Date of Service: 01/15/18 Service Type: [id number] Hosp care 15 min low complexity Subjective: Carolina is seen for follow up. She has been consistently taking the low-dose aripiprazole since Saturday and we have not observed any catatonic behaviors in well over a week. The patient is calm and cooperative, although her grooming appears dishevelled. She is calm and cooperative, expressing her eagerness for discharge. The patient is given her options, in terms of oral versus injectable medication in the outpatient setting, and she chooses to remain on the oral medication. She has been coming out of her room more, attending some groups and being more socially engaged. There is no overt evidence of paranoid thinking. She is tolerating the medicines well and has no complaints of EPS or other side effects. She denies SI/HI/AH/VH. Objective - Appearance Appearance: Well Developed/Nourished Dysmorphic Features: No Hygiene: Normal Grooming: Disheveled - Behavior Psychomotor Activities: Normal Exhibits Abnormal Movement: No - Attitude and Relatedness Attitude and Relatedness: Cooperative Eye Contact: Fair - Speech Quality: Unpressured Latencies: Normal Quantity: Appropriate - Mood Patient's Decription of Mood: "Good" - Affect Observed Affect: Good Affect Consistent with: Euthymia - Thought Process Patient's Thought Process: Coherent Thought Content: No Passive Wish, No Suicidal Planning, No Homicidal Ideation, No Paranoid Ideation - Sensorium Experiencing Hallucinations: No, Sensorium is Clear Type of Hallucinations: Visual: No, Auditory: No, Command: No - Level of Consciousness Level of Consciousness: Alert Orientation: Yes Intact, Yes Orientated to Time, Yes Orientated to Place, Yes Orientated to Person - Impulse Control Impulse Control: Tenuous - Insight and Judgement Insight and Judgement: Fair - Group Participation Particating in Group Activities: Yes - Medication Management Medication Management Adherence: Yes Assessment - Assessment Merits Inpatient Hospitalization: Consolidate Improvements, Pending Safe DC Plan Inpatient DSM-V Dx: F29 Clinical Impression: 57 y.o. single, white female with a history of multiple recent psychiatric admissions for psychosis in her [place], who was apprehended by police after being discovered by concerned citizens, sitting in a rental car on the side of the road, staring blankly into space. She cannot account for why she drove to this area and had frequently been observed to be catatonic on our unit during the early part of her admission. She is now improving and tolerating medication well. Plan - Plan Treatment Plan: Name: CAROLINA CHRISTIANSON Birthdate: 1960 [id number] The patient is improving on aripiprazole 5mg PO qday. She appears back to her psychiatric baseline and her sister is coming tomorrow from [place] to pick her up. Follow up arrangements will be made prior to discharge tomorrow (01/16) . Continued Medication Management: Start Medication Medications: Current Medications Acetaminophen (Tylenol Tab*) 650 mg PO Q4H PRN PRN Reason: for pain; or Temp >101 F Al Hydrox/Mg Hydrox/Simethicone (Maalox Plus*) 30 ml PO Q4H PRN PRN Reason: INDIGESTION Aripiprazole (Abilify Tab*) 5 mg PO DAILY [facility] Last Admin: 01/15/18 09:07 Dose: 5 mg Polyvinyl Alcohol (Polyvinyl Alcohol 1.4% Opth*) 1 drop BOTH EYES Q1H PRN PRN Reason: dry eye/eye irritation - Discharge Plan Discharge Plan: Outpatient Follow Up
[2018-01-16 08:11] VITALS: BP 135/74
[2018-01-16] MEDS: ARIPiprazole TAB* 5 MG PO SCH (08:53)
--- NOTE | 2018-01-16 15:06 | DS ---
DATE OF ADMISSION: 01/01/2018. DATE OF DISCHARGE: 01/16/2018. DISCHARGE DIAGNOSES: AXIS I: Unspecified psychotic disorder, rule out catatonic schizophrenia versus psychosis secondary to traumatic brain injury. AXIS II: Deferred. CONDITION AT THE TIME OF DISCHARGE: Stable. The patient is clean and well- groomed. She has shown no evidence of catatonic behavior in well over a week. Her family feels that she is back to her baseline and they are traveling from the [facility] to pick her up and bring her home. The patient has accepted a trial of low dose Aripiprazole which she is tolerating well and voices no complaints of side effects, including extrapyramidal symptoms. The patient has been calm and cooperative with treatment, attending groups, safe on all checks. She has denied suicidal or homicidal ideations throughout this hospitalization. The patient was agreeable to a referral to the Community Treatment team in her local community of [place], [place] and they will be visiting her at home tomorrow which is 01/17/2018. LABORATORY DATA: The patient's metabolic testing was performed on the 12 of January revealing a hemoglobin A1c of 4.7 percent, triglycerides 79, total cholesterol 220, LDL cholesterol 158, HDL cholesterol 46.7. MENTAL STATUS EXAM: The patient is a middle-aged white female who is clean, well- groomed, dressed in a pink shirt who is sitting on her bed making excellent eye contact. She is calm, cooperative, easy to establish a rapport with. Her speech is responsive, articulate with a normal rate, tone and volume. Mood is euthymic with a full affect. Thought process is linear and goal-directed. Thought content is significant for her desire to be discharged from the hospital. She denies suicidal or homicidal ideations. She denies auditory or visual hallucinations. Insight and judgement appear to be fair given her willingness to continue taking medications and follow-up on an outpatient basis. Cognitively, she is awake and alert with what would appear to be an average intellect. DISCHARGE INSTRUCTIONS TO THE PATIENT: A. Medications: She is taking Aripiprazole 5 mg p.o. daily. B. Diet: Regular. C. Activities: As tolerated. The patient is a nonsmoker. There are no laboratory or diagnostic studies pending at the time of discharge. D. Follow-up care: The patient will be seen by the [place], [place] Assertive Community Treatment team on Wednesday, January 17, 2018. They will visit her at her home. E. Substance abuse follow-up: Nonapplicable. HOSPITAL COURSE - PART A: Reason for admission: The patient is a 57-year-old, single, white female with a history of multiple recent psychiatric admissions for psychosis in her [place] who was apprehended by police after being discovered by concerned citizens sitting in a rental car on the side of the road starring blankly into space. Upon presentation on a 9.41 involuntary legal status, she could not account for why she drove to this area and was frequently observed by staff to be catatonic. The patient was coming in and out of consciousness, but seemed to indicate to admitting clinicians that she had been treated with Fluphenazine and Ziprasidone in the past. She was demonstrating clear symptoms of catatonia, being quite still for minutes at a time, holding her hands still in place, being nonresponsive, appearing to be stuck in motion. She was not very coherent and could not explain her circumstances. When asked what she was doing in this area, she stated that she was driving from [facility] to her home in [place]. She was confronted on the fact that [place] is geographically in the opposite direction of [place] from [facility], but she could not provide further explanations. She stated, for example, that she had run out of gas on the side of the road, but documentation from the apprehending police officers indicated that she had a half-a-tank of gas left. We were able to contact her siblings who indicated that she had had several recent acute hospitalizations for catatonic behavior in [place], but had always failed to follow-up with outpatient treatment. HOSPITAL COURSE - PART B: Psychiatric treatment rendered: The patient was admitted to the [facility] under the care of psychiatric nurse practitioner Natasha Almanza. Natasha resumed treatment with Ziprasidone; however, the patient only took one to two doses before self-discontinuing this. She was nonadherent, disheveled, not grooming or taking care of herself, and for this reason, she was transferred to the service of Dr. Santiago Hoover on the 10 of January. At that time, we brought up the issue of treatment over her objection and she actually did meet with the state appointed criminal defense attorney; however, after meeting with Dr. Hoover, she agreed to a low dose trial of Aripiprazole 5 mg p.o. daily. A reason for this selection was that she complained bitterly of having extrapyramidal side effects from previous administrations of other second generation antipsychotic medications. The patient took this medication safely through the weekend and the beginning of the following week. She demonstrated no side effects and her catatonia was completely resolved. Her grooming improved. She started attending groups. She allowed us to discharge plan with her sister and brother who remained quite concerned about her safety. They did acknowledge, however, that she was returning to her baseline and felt that she was safe for them to come from [place] to pick her up and take her home. We were able to contact the local assertive community treatment team in [place], [place] who agreed to follow-up with her one day following discharge. At this time, the patient appears to be back to her psychiatric baseline. I do believe that she is benefiting from the low dose of the neuroleptic and we are strongly recommending that she continue with this. I did offer her injectable Aripiprazole on a once monthly basis; however, she declined this stating her preference to continue with oral therapy. Her prescription was released to the [facility] in [place], [place]. At this time, we do not see any barriers to discharging Carolina from our care and we certainly wish her the best for a safe and healthy future. [id number]/CPS #: [id number] MTDD
== END 2018-01-16 11:35 | disposition home or self-care (01) | DRG 885 ==
LOC: ED 04:28 → BSU 09:09
PROVIDERS: ADMIT Psychiatry & Neurology Psychiatry; ATTEND Psychiatry & Neurology Psychiatry
DX: F29 Unspecified psychosis not due to a substance or known physiological condition (principal); F20.2 Catatonic schizophrenia; H10.9 Unspecified conjunctivitis; F60.0 Paranoid personality disorder; Z88.0 Allergy status to penicillin; Z87.820 Personal history of traumatic brain injury
CPT/HCPCS: 36415; 80053; 80061; 80307; 80320; 80329; 81003; 81015; 82550; 83036; 83605; 84443; 85025; 87086; 99222; 99231; 99232; 99238; 99283; A9270-GY; G0480